=== PATIENT | female | born 1945 | race Caucasian/White ===

== ENCOUNTER 2017-07-24 07:24 | Day surgery (SDC) | payer MEDICARE, BC ==
[~2017-07-24] VITALS: Ht 167.6 cm; Wt 79.6 kg
== END 2017-07-24 09:35 | disposition home or self-care (01) ==
LOC: ORSCSDS 07:24
PROVIDERS: Surgery
PROC: 0DJD8ZZ Inspection of Lower Intestinal Tract, Via Natural or Artificial Opening Endoscopic (ICD-10-PCS; principal; 2017-07-24 08:45)
DX: Z12.11 Encounter for screening for malignant neoplasm of colon (principal); Z80.0 Family history of malignant neoplasm of digestive organs; F32.9 Major depressive disorder, single episode, unspecified; H40.9 Unspecified glaucoma; Z79.82 Long term (current) use of aspirin
CPT/HCPCS: J7120

== ENCOUNTER → 2022-11-24 | Outpatient (CLI) | payer MEDICARE, BC ==
[2022-11-24 16:03] LABS: Microalb/Creat Ratio UR, Rand 14.412 mg/g (0.000-30.000); Microalbumin, Random Urine 14.7 mg/L (0.000-20.000)
== END ==
LOC: LAB 07:10 → LAB SHORT 07:10
PROVIDERS: Physician Assistant
DX: E11.9 Type 2 diabetes mellitus without complications (principal)
CPT/HCPCS: 82043; 82570